=== PATIENT | male | born 1985 | race African-American/Black ===

== ENCOUNTER 2024-08-27 08:01 | Outpatient (CLI) | payer OTHER, SELFPAY ==
--- NOTE | ~2024-08-27 | MR_ITS ---
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 Sequences included axial, sagittal and coronal T1-weighted FSE, axia l T1-weighted FS FSE, axial and coronal fluid sensitive FSE STIR and post contrast axial, sagittal an d coronal T1-weighted FS FSE were also obtained. COMPARISON: Radiographs dated 08/05/2024 FINDINGS: 10.4 x 6.4 x 5.2 cm heterogeneously enhancing mass arising from the distal left ulna with prominent o steophytosis. The bone margins which are better appreciated on the prior radiographs demonstrate expa nsion of the bone along the distal margin of the ostial lysis confirming an intraosseous origin. The mass abuts the distal radius with thinning of the ulnar-sided cortex of the distal radius but without intraosseous extension. There is significant mass effect upon the surrounding muscles and tendons at the distal forearm. There appears be some extension of the enhancing mass into the space between the volar aspect of the distal radius and the more superficial flexor tendons. No skip lesions in the mo re proximal ulna or other bone lesions identified. IMPRESSION: 1. 10.4 x 6.4 x 5.2 cm heterogeneously enhancing expansile a destructive mass arising from the distal left ulna concerning for malignancy including primary osteosarcoma. Appearance would be atypical for lymphoma and metastatic disease would be unlikely in the distal extremities. Recommend orthopedic on cology referral. Consider biopsy for pathologic correlation and further evaluation with bone scan and chest CT to assess for potential metastatic disease. Reviewed, dictated and finalized at location [facility]. [facility] IMMUNOLOGY IMPRESSION: 1. 10.4 x 6.4 x 5.2 cm heterogeneously enhancing expansile a destructive mass a rising from the distal left ulna concerning for malignancy including primary os teosarcoma. Appearance would be atypical for lymphoma and metastatic disease wo uld be unlikely in the distal extremities. Recommend orthopedic oncology referr al. Consider biopsy for pathologic correlation and further evaluation with bone scan and chest CT to assess for potential metastatic disease.
== END 2024-08-27 08:02 | disposition home or self-care (01) ==
LOC: MICIMG 08:01
PROVIDERS: PCP Orthopaedic Surgery; Visit Provider Orthopaedic Surgery
DX: R93.6 Abnormal findings on diagnostic imaging of limbs (principal); D49.2 Neoplasm of unspecified behavior of bone, soft tissue, and skin
CPT/HCPCS: 73220; A9577